=== PATIENT | female | born 1960 | race Caucasian/White ===

== ENCOUNTER → 2016-09-08 | Outpatient (CLI) | payer BC ==
[2016-09-08 09:45] LABS: Blood Urea Nitrogen 19 mg/dL (7-17); Non-African American GFR(MDRD) >60 (>60 ml/min/1.73 sqM)
--- NOTE | 2016-09-08 13:43 | MR ---
EXAMINATION TYPE: MR brain wo/w con DATE OF EXAM: 09/08/2016 10:49 AM COMPARISON: MRI Brain dated September 23, 2014. HISTORY: MS, headaches and white matter changes. TECHNIQUE: Multiplanar, multisequence images of the brain and brainstem is performed without and with IV contras t, utilizing 12 mL intravenous MultiHance gadolinium contrast is administered intravenously. Demyeli nating disease protocol with additional Sagittal Flair sequence performed. FINDINGS: T2 Lesions Present : Yes Approximate Number of Lesions: Appx. 5-7 scattered lesions. Locations Identified : Scattered deep lesions. Size of Reference Lesion(s): 1. 0.4 cm x 0.2 cm x 0.3 cm on axial image 19 and sagittal image 28 right frontal white matter stabl e. One of the larger lesions. Change from Prior: Stable Enhancing Lesions Identified: None Diffusion weighted images demonstrate no evidence of a recent infarct or other diffusion abnormality. There is no worrisome extra-axial fluid collection. The ventricular system and cisternal spaces ar e normal in size and appearance. The brain volume is age appropriate. Midline structures demonstrate normal morphology. The craniocervical junction appears within normal limits. Post contrast images demonstrate no abnormal enhancement. The dural venous sinuses appear pa tent. Mild mucosal thickening in bilateral ethmoid sinuses is present. Remainder of the paranasal sin uses are clear. The globes are intact bilaterally. Lenses are somewhat thinned similar to prior. IMPRESSION: Mild to minimal nonspecific white matter changes nonspecific finding would favor product of chronic small vessel ischemic change in patient of this age. No new or enhancing lesions are evide nt.
== END | disposition home or self-care (01) ==
LOC: RADMRIMAIN 09:10
PROVIDERS: ATTEND Psychiatry & Neurology Neurology
DX: R90.82 White matter disease, unspecified (principal)
CPT/HCPCS: 82565; 84520; 70553; A9577

== ENCOUNTER → 2017-02-24 | Outpatient (CLI) | payer BC ==
--- NOTE | 2017-02-25 07:55 | CONS ---
Reason for the consultation is sleep apnea. A 56-year-old female patient who suffers from chronic insomnia. The patient has had insomnia for many years and this has been attributed to be a comorbid insomnia related to anxiety and depression. She has been maintained on a combination of chlordiazepoxide, trazodone and Seroquel in regards to her chronic insomnia. She is also known to have chronic degenerative disc disease of the cervical spine for which she has undergone surgical discectomy and fusion and this was further complicated by a right-sided vocal cord paralysis. INTERVAL SLEEP CHARACTERISTICS: The patient claims that she averages between 4 to 6 hours of sleep per night. She has been able to initiate sleep; however, after going to sleep she would wake up frequently. She has been noted to stop breathing and snores loud. In addition, she has been having excessed tiredness and sleepiness. All these symptoms also raise suspicion for obstructive sleep apnea. The home sleep study was done and based on the home sleep study, the patient was found to have a mild obstructive sleep apnea with an AHI of 6.5; however, there was significant nocturnal oxygen desaturation which is out of proportion to the severity of obstructive sleep apnea. This patient has spent approximately 153 minutes of the sleep the pulse ox of 88% and below. She is nonobese, yet as mentioned she has right vocal cord paralysis. No history of any chronic lung disease. She ( ) and pulse ox while awake is around 96%. She has interest in further investigation and treatment of obstructive sleep apnea if needed. As mentioned, HUMERA severity was mild based on this current home sleep study. No sleep paralysis, no ( ) or cataplexy. Her weight is up by 5 pounds over the past one year. She wakes up at least 3 to 5 times in the middle of the night and occasionally she has been reported to sleep talk. PAST MEDICAL HISTORY: 1. Chronic insomnia. 2. Anxiety/depression. 3. 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 4. Fibromyalgia. 5. Hyperlipidemia. 6. Degenerative cervical disc disease, status post discectomy and fusion. Allergies are to CODEINE, AZITHROMYCIN, CLINDAMYCIN. SOCIAL HISTORY: The patient is a nonsmoker, no evidence of alcohol use and no use of IV drugs. Surgical history includes cervical fusion in 2004, hysterectomy, cataract surgery. OUTPATIENT MEDICATION LIST: The patient has been on Estradiol 1 mg p.o. q.day, verapamil 240 mg p.o. q.day, trazodone 100 mg p.o. q.day, Zocor 10 mg p.o. q.day , Seroquel 100 mg p.o. q.day, loperamide on a p.r.n. basis, dicyclomine 10 mg p.o. q.day, chlordiazepoxide 25 mg p.o. q.day, omeprazole 4 mg p.o. q.day, hydrocortisone 10 mg p.o. q.day and 5 mg p.o. q.day. REVIEW OF SYSTEMS: A 12-point review of system was done, positive for what is mentioned above in the history of present illness. BP is 156/87, pulse 76, respirations 16, temperature 97.2 and saturation 96% on room air. Weight is 148, height is 5,2, neck size is 14-1/4 inch, BMI is 27. GENERAL APPEARANCE: Calm, comfortable. HEENT: Negative for stridor, no goiter, neck masses, Mallampati class 4. LUNGS: Clear to auscultation. Heart sounds regular rate and rhythm, normal S2, S2. No S3, no S4, no murmurs. ABDOMEN: Soft, nontender, no organomegaly. EXTREMITIES: No edema, no cyanosis or clubbing. IMPRESSION: 1. Chronic insomnia maintained on a combination of trazodone and Seroquel. 2. Mild obstructive sleep apnea based on the results of a home sleep study with an apnea-hypopnea of 6.5. 3. Severe nocturnal oxygen desaturation as the patient spent approximately 2 hours of sleep time with a pulse ox of 88% and below. This is considered to be out of proportion to the severity of the sleep apnea. 4. Degenerative disc disease of the cervical spine with previous discectomy and fusion. 5. Right vocal cord paralysis. 6. Fibromyalgia. 7. Hyperlipidemia. 8. Adrenal insufficiency of a secondary type related to pituitary insufficiency of ACTH. PLAN: I would like to obtain a full polysomnogram on this patient. Note that she has history of chronic insomnia. In addition, her home sleep study is showing contradictory results of mild HUMERA and severe nocturnal oxygen desaturation. This raises suspicion for any nocturnal alveolar hypoventilation which is causing the saturation in the event of a sleep apnea. I will try to authorize this home sleep study for this patient for better information and understanding of her pathology. Continue the same medications. Will see me back after the PSG for further advice. No need for CPAP therapy at this point. WILVER
== END ==
LOC: SLEEP 14:16
PROVIDERS: ATTEND Internal Medicine Critical Care Medicine
DX: F51.04 Psychophysiologic insomnia (principal); F41.9 Anxiety disorder, unspecified; F32.9 Major depressive disorder, single episode, unspecified; M79.1 Myalgia; E78.5 Hyperlipidemia, unspecified; M50.30 Other cervical disc degeneration, unspecified cervical region; Z88.5 Allergy status to narcotic agent; Z88.1 Allergy status to other antibiotic agents
CPT/HCPCS: 99211

== ENCOUNTER → 2017-12-24 | Outpatient (CLI) | payer BC ==
[2017-12-24 13:18] LABS: Blood Urea Nitrogen 27 mg/dL (7-17)
== END | disposition home or self-care (01) ==
LOC: LABT 12:22
PROVIDERS: ATTEND Nurse Practitioner Acute Care
DX: Z01.812 Encounter for preprocedural laboratory examination (principal); R51 Headache; M54.2 Cervicalgia; M54.5 Low back pain
CPT/HCPCS: 36415; 82565; 84520

== ENCOUNTER → 2018-01-14 | Outpatient (CLI) | payer BC ==
--- NOTE | 2018-01-14 10:13 | MR ---
EXAMINATION TYPE: MR lumbar spine wo con DATE OF EXAM: 01/14/2018 COMPARISON: MRI lumbar spine August 19, 2013 HISTORY: low back pain per order. Back pain into right lower extremity for over 5 years per patient. TECHNIQUE: Multiplanar, multisequence imaging of the lumbar spine is performed without IV contrast. FINDINGS: Sagittal images of the lumbar spine show vertebral body heights and alignment to appear sta ble and satisfactory. The intervertebral discs demonstrate increased multilevel disc desiccation with disc space heights fairly well-maintained. There are new or more prominent posterior multilevel disc herniations on sagittal images effacing anterior thecal sac. The conus medullaris remains normal in position and signal ending mid L1 level. The bone marrow signal intensity is within normal limits. M ild multilevel anterior spurring is seen. Axial images show the T12-L1 and L1-L2 levels to appear within normal limits. Axial images at L2-L3 level show more prominent mild to moderate broad disc bulge mildly effacing ant erior thecal sac and axial image 18. There is mild to minimal right greater than left bilateral anter ior inferior neural foraminal narrowing. Findings are new from prior. Axial images at L3-L4 level show mild to moderate broad disc bulge effacing anterior thecal sac and a xial image 12 and causing mild bilateral anterior inferior neural foraminal narrowing. Mild bilateral facet arthropathy is present. Finding slightly more prominent versus prior. Axial images at L4-L5 level show broad-based posterior disc protrusion effacing anterior thecal sac a long with mild to moderate facet degenerative changes bilaterally. There is mild to moderate bilatera l anterior inferior neural foraminal narrowing. Axial images at L5-S1 level show mild facet arthropathy bilaterally. There is broad disc bulge seen b ut spinal canal is preserved. There is mild to moderate right-sided anterior inferior neural foramina l narrowing. Left-sided neural foramen is patent. No suspicious retroperitoneal findings are identified. There is visualization of pancreatic duct with out suspicious dilatation noted. IMPRESSION: Multilevel degenerative changes in lumbar spine with some progression from 2014 MRI. No s ignificant new finding is seen to account for patient's right-sided radiculopathy type symptoms [facility] er.
--- NOTE | 2018-01-14 11:12 | MR ---
EXAMINATION TYPE: MR brain/cspine wo/w DATE OF EXAM: 01/14/2018 COMPARISON: MR Brain dated 09/08/2016. MRI cervical spine 12/19/2014. HISTORY: Headache, Cervicalgia per order. Migraine headaches with nervous breakdown per patient. Litzy re neck pain with burning and numbness for 20 years causing pain or weakness into both arms and finge rs per patient with history of prior neck surgery. TECHNIQUE: Multiplanar, multisequence images of the cervical spine, brain, and brainstem are all performed witho ut and with IV contrast, utilizing 6.5 mL intravenous Gadavist gadolinium contrast is administered in travenously. Demyelinating disease protocol with additional Sagittal Flair sequence performed the br ain and brainstem and PD sagittal sequence of cervical spine acquired. FINDINGS: BRAIN: T2 Lesions Present : Yes Approximate Number of Lesions: Less than 5 Locations Identified : Scattered small lesions redemonstrated Size of Reference Lesion(s): Largest measurable lesion is 4 x 2 x 3 mm axial image 18 and sagittal image 27 stable right frontal d eep white matter. Enhancing Lesion(s) Present: No Change from Prior: Accounting for technical differences presumed stable Diffusion weighted images demonstrate no evidence of a recent infarct or other diffusion abnormality. There is no worrisome extra-axial fluid collection. The ventricular system and cisternal spaces ar e normal in size and appearance. The brain volume is age appropriate. Midline structures demonstrate normal morphology. The craniocervical junction appears within normal limits. Post contrast images demonstrate no abnormal enhancement. The dural venous sinuses appear pa tent. The visualized sinuses are clear and the globes are intact. IMPRESSION: Stable minimal nonspecific white matter changes. No new or enhancing lesions are seen. No significant change from prior. C-SPINE: FINDINGS: Sagittal images of the cervical spine show the craniocervical junction to remain within nor mal limits. The cervical and upper thoracic spinal cord is normal in course, caliber, and signal. V ertebral alignment is stable and anatomic. There is redemonstration of extensive surgical change begi nning superior C5 level through inferior C7 vertebral body level with anterior fusion plate, artifact from disc, and ossific fusion present. Vertebral body heights and disc space heights appear maintain ed above and below these levels. Small posterior disc herniations is redemonstrated C3-C4 and to a sl ightly greater degree C4-C5 level on sagittal images on today's study. The bone marrow signal intens ity is within normal limits. No suspicious enhancement is seen. Mild anterior spurring C4 level is re demonstrated. Axial images show the C2-C3 level to appear within normal limits currently. Axial images at C3-C4 level shows central disc protrusion effacing anterior thecal sac, this is less prominent versus prior study, there is new mild right-sided neural foraminal narrowing due to foramin al disc protrusion component axial image 43. Left-sided neural foramen is patent. Axial images at C4-C5 level show posterior broad-based disc protrusion effacing anterior thecal sac w ith flattening of the ventral surface of spinal cord, bilateral neural foramina are patent. Finding i s new from prior study. Axial images at C5-C6 level show artifact from disc material extends image 24, bilateral neural yola maurilio are patent. There is posterior spur effacing anterolateral thecal sac and axial image 27 redemons trated. Axial images at C6-C7 level redemonstrate artifact from surgical change, bilateral neural foramina ar e patent. Spinal canal is preserved on axial image 23. Axial images at C7-T1 level show extensive artifact anteriorly, cannot exclude mild left-sided neural foraminal narrowing. Right-sided neural foramen is patent on axial image 16. IMPRESSION: No evidence of demyelinating disease involvement in the cervical spinal cord. Postsurgica l change C5-C7 level with stable and satisfactory alignment. Disc herniation C3-C4 levels improved fr om prior. New disc herniation C4-C5 level however is noted.
== END | disposition home or self-care (01) ==
LOC: RADMRIMAIN 08:47
PROVIDERS: ATTEND Psychiatry & Neurology Neurology
DX: M50.221 Other cervical disc displacement at C4-C5 level (principal); M47.816 Spondylosis without myelopathy or radiculopathy, lumbar region; R51 Headache; Z98.890 Other specified postprocedural states; Z88.5 Allergy status to narcotic agent; Z88.8 Allergy status to other drugs, medicaments and biological substances; Z88.1 Allergy status to other antibiotic agents
CPT/HCPCS: 70553; 72148; 72156; A9581

== ENCOUNTER 2018-07-08 14:29 | Emergency (ER) | payer BC ==
[2018-07-08 14:52] VITALS: RESP 18; TEMP 97.9
--- NOTE | 2018-07-08 15:19 | ED ---
General Adult HPI - General Chief complaint: Upper Respiratory Infection Stated complaint: Cough Time Seen by Provider: 07/08/18 14:54 Source: patient Mode of arrival: ambulatory Limitations: physical limitation - History of Present Illness Initial comments: 58-year-old female patient presents to the emergency department today for evaluation of productive cough 3 weeks. Patient states with initial onset of symptoms she had nasal congestion, sore throat, and cough. Patient states that the nasal congestion and cough has persisted. She states that occasionally she become short of breath and she does a lot of physical activity or talks for a prolonged period of time. States that she has been having some mild wheezing. Denies any fevers or chills. States that she does have a history of adrenal insufficiency and does take hydrocortisone daily. States when she has an illness she does increase the dose, she has been taking total of 30 mg per day. She is also reporting migraine headache. States the is in the back of her head. States that she does have history of migraine headaches and states her pain is consistent with her usual migraine pattern. She denies any blurred or double vision. Denies nausea, vomiting, numbness, or tingling. Patient denies any recent rash, chest pain, abdominal pain, nausea, vomiting, diarrhea, constipation, back pain, hematuria, dysuria, urinary urgency, urinary frequency , visual changes, or any other complaints. - Related Data Home Medications Medication Instructions Recorded Confirmed Amoxicillin 250 mg PO MOWEFR 02/08/16 02/08/16 Butalb/APAP/Caff 50-325-40Mg 1 tab PO TID PRN 02/08/16 02/08/16 [Fioricet 50-325-40] Dicyclomine [Bentyl] 10 mg PO TID 02/08/16 02/08/16 Ergocalciferol [Vitamin D2] 50,000 unit PO SA 02/08/16 02/08/16 Essential Cultures 1 cap PO QAM 02/08/16 02/08/16 Estradiol [Estrace] 1 mg PO DAILY 02/08/16 02/08/16 Hydrocortisone [Cortef] 2.5 mg PO QAM 02/08/16 02/08/16 Hydrocortisone [Cortef] 10 mg PO QAM 02/08/16 02/08/16 Loperamide [Imodium] 4 mg PO QID 02/08/16 02/08/16 Omeprazole [PriLOSEC] 40 mg PO BID 02/08/16 02/08/16 QUEtiapine [SEROquel] 200 mg PO HS 02/08/16 02/08/16 Ranitidine HCl [Zantac] 150 mg PO QAM 02/08/16 02/08/16 Rizatriptan Benzoate [Maxalt] 10 mg PO QID PRN 02/08/16 02/08/16 Simvastatin [Zocor] 10 mg PO HS 02/08/16 02/08/16 Verapamil HCl [Verapamil ER] 240 mg PO DAILY 02/08/16 02/08/16 Vitamin E 200 unit PO DAILY 02/08/16 02/08/16 chlordiazePOXIDE HCL 25 mg PO BID PRN 02/08/16 02/08/16 traZODone HCL [Desyrel] 200 mg PO HS 02/08/16 02/08/16 Previous Rx's Medication Instructions Recorded Metoclopramide HCl [Reglan] 10 mg PO TID PRN #15 tablet 02/08/16 Nystatin 100,000 Unit/ml Susp 4 ml PO QID #150 ml 02/08/16 [Mycostatin Oral Susp] Amoxic-Pot Clav 875-125Mg 1 tab PO Q12HR #20 tablet 07/08/18 [Augmentin 875-125] Benzonatate [Tessalon Perles] 100 mg PO TID #15 cap 07/08/18 Promethazine 6.25MG/5Ml [Phenergan 6.25 mg PO Q6H #100 ml 07/08/18 Syrup] Allergies Allergy/AdvReac Type Severity Reaction Status Date / Time azithromycin [From Zithromax] Allergy Unknown Verified 07/08/18 14:52 clindamycin Allergy Unknown Verified 07/08/18 14:52 codeine Allergy Rash/Hives Verified 07/08/18 14:52 zonisamide [From Zonegran] Allergy Rash/Hives Verified 07/08/18 14:52 Review of Systems ROS Statement: Those systems with pertinent positive or pertinent negative responses have been documented in the HPI. ROS Other: All systems not noted in ROS Statement are negative. Past Medical History Past Medical History: Hyperlipidemia, Hypertension Additional Past Medical History / Comment(s): adrenal deficiency History of Any Multi-Drug Resistant Organisms: None Reported Past Surgical History: Hysterectomy Additional Past Surgical History / Comment(s): ulner nerve disposition, cervical fusion, neck -cervical ablation, bulding discs Past Psychological History: No Psychological Hx Reported, Anxiety, Depression Smoking Status: Former smoker Past Alcohol Use History: Occasional Past Drug Use History: None Reported, Marijuana General Exam Limitations: physical limitation General appearance: alert, in no apparent distress Eye exam: Present: normal appearance, PERRL, EOMI. Absent: scleral icterus, conjunctival injection, periorbital swelling ENT exam: Present: normal exam, normal oropharynx, mucous membranes moist Respiratory exam: Present: wheezes (Scattered mild expiratory wheezes). Absent : normal lung sounds bilaterally, respiratory distress, rales, rhonchi, stridor Cardiovascular Exam: Present: regular rate, normal rhythm, normal heart sounds. Absent: systolic murmur, diastolic murmur, rubs, gallop, clicks GI/Abdominal exam: Present: soft, normal bowel sounds. Absent: distended, tenderness, guarding, rebound, rigid Neurological exam: Present: alert, oriented X3, CN II-XII intact, other ( Strength in all 4 extremities is 5/5.) Psychiatric exam: Present: normal affect, normal mood Skin exam: Present: warm, dry, intact, normal color. Absent: rash Course Vital Signs 07/08/18 07/08/18 14:48 17:01 Temperature 97.9 F 97.9 F Pulse Rate 83 78 Respiratory 18 18 Rate Blood Pressure 144/77 148/71 O2 Sat by Pulse 96 97 Oximetry Medical Decision Making - Medical Decision Making 58-year-old female patient presents to the emergency department today for evaluation of cough 3 weeks. Patient reported shortness of breath only with vigorous physical activity or prolonged speaking. Lungs are clear to auscultation with good air movement. Chest x-ray showed no acute cardiopulmonary process. Given patient's history of adrenal insufficiency we did perform labs which were negative for any acute findings. Patient be discharged home with a prescription for Augmentin to treat for both sinusitis and acute bronchitis. She declined albuterol inhaler. She does take steroids for adrenal insufficiency so we'll continue those. We did give 1 dose of Decadron here in the department. Return parameters were discussed in detail. She is instructed to follow-up with her primary care physician for recheck as soon as possible. She verbalizes understanding and agrees with this plan. - Lab Data Result diagrams: 07/08/18 15:50 07/08/18 15:50 Lab Results 07/08/18 07/08/18 Range/Units 15:50 15:50 WBC 5.2 (3.8-10.6) k/uL RBC 4.19 (3.80-5.40) m/uL Hgb 12.8 (11.4-16.0) gm/dL Hct 39.9 (34.0-46.0) % MCV 95.1 (80.0-100.0) fL MCH 30.5 (25.0-35.0) pg MCHC 32.1 (31.0-37.0) g/dL RDW 13.7 (11.5-15.5) % Plt Count 373 (150-450) k/uL Neutrophils % 72 % Lymphocytes % 21 % Monocytes % 4 % Eosinophils % 1 % Basophils % 1 % Neutrophils # 3.8 (1.3-7.7) k/uL Lymphocytes # 1.1 (1.0-4.8) k/uL Monocytes # 0.2 (0-1.0) k/uL Eosinophils # 0.1 (0-0.7) k/uL Basophils # 0.0 (0-0.2) k/uL Sodium 140 (137-145) mmol/L Potassium 4.2 (3.5-5.1) mmol/L Chloride 101 (98-107) mmol/L Carbon Dioxide 29 (22-30) mmol/L Anion Gap 10 mmol/L BUN 11 (7-17) mg/dL Creatinine 0.73 (0.52-1.04) mg/dL Est GFR (CKD-EPI)AfAm >90 (>60 ml/min/1.73 sqM) Est GFR (CKD-EPI)NonAf >90 (>60 ml/min/1.73 sqM) Glucose 112 H (74-99) mg/dL Calcium 9.8 (8.4-10.2) mg/dL Total Bilirubin 0.3 (0.2-1.3) mg/dL AST 22 (14-36) U/L ALT 20 (9-52) U/L Alkaline Phosphatase 47 (38-126) U/L Total Protein 7.6 (6.3-8.2) g/dL Albumin 4.5 (3.5-5.0) g/dL - Radiology Data Radiology results: report reviewed, image reviewed Two-view x-ray of the chest is obtained. Report is reviewed in its entirety. Impression by Dr. Venegas shows no suspicious acute infiltrate. Disposition Clinical Impression: Acute bronchitis, Sinusitis Disposition: HOME SELF-CARE Condition: Good Instructions: Sinusitis (ED), Acute Bronchitis (ED) Additional Instructions: Take [id number] nasal decongestants. Complete antibiotic prescription in full. Follow-up with your primary care physician for recheck as soon as possible. Return immediately for any new, worsening, or concerning symptoms. Prescriptions: Amoxic-Pot Clav 875-125Mg [Augmentin 875-125] 1 tab PO Q12HR #20 tablet Benzonatate [Tessalon Perles] 100 mg PO TID #15 cap Promethazine 6.25MG/5Ml [Phenergan Syrup] 6.25 mg PO Q6H #100 ml Is patient prescribed a controlled substance at d/c from ED?: No Referrals: Leida Braswell MD [Primary Care Provider] - 1-2 days Time of Disposition: 16:41
--- NOTE | 2018-07-08 15:30 | XR ---
EXAMINATION TYPE: XR chest 2V DATE OF EXAM: 07/08/2018 COMPARISON: Chest x-ray August 12, 2013. HISTORY: Cough per patient. Chest pain per order. TECHNIQUE: Frontal and lateral views of the chest are obtained. FINDINGS: There is no focal air space opacity, pleural effusion, or pneumothorax seen. The cardiac silhouette size is within normal limits. Anterior fusion plate cervical spine is redemonstrated with adjacent right-sided surgical clips. Right breast shadow asymmetrically slightly smaller versus left breast. Atherosclerotic change of aorta is noted. IMPRESSION: No suspicious acute infiltrate.
[2018-07-08] MEDS ORDERED: diphenhydrAMINE 50 MG/ML 1 ML VIAL IVP STA (15:41)
[2018-07-08] MEDS ORDERED: METOCLOPRAMIDE 5 MG/ML 2 ML VIAL IVP STA (15:41)
[2018-07-08] MEDS ORDERED: KETOROLAC 30 MG/ML 1 ML VIAL IVP STA (15:41)
[2018-07-08] MEDS ORDERED: DEXAMETHASONE SOD PHOSPHATE 10 MG/ML 1 ML VIAL IV STA (15:41)
[2018-07-08 16:24] LABS: Basophils % (A) 1 %; Eosinophils # (A) 0.1 k/uL (0-0.7); Eosinophils % (A) 1 %; HCT 39.9 % (34.0-46.0); HGB 12.8 gm/dL (11.4-16.0); Lymphocytes # (A) 1.1 k/uL (1.0-4.8); Lymphocytes % (A) 21 %; MCH 30.5 pg (25.0-35.0); MCHC 32.1 g/dL (31.0-37.0); MCV 95.1 fL (80.0-100.0); Mean Platelet Volume 6.2; Monocytes # (A) 0.2 k/uL (0-1.0); Monocytes % (A) 4 %; Neutrophils # (A) 3.8 k/uL (1.3-7.7); Neutrophils % (A) 72 %; Platelet Count 373 k/uL (150-450); RBC 4.19 m/uL (3.80-5.40); RDW 13.7 % (11.5-15.5); WBC 5.2 k/uL (3.8-10.6)
[2018-07-08 16:27] LABS: ALT 20 U/L (9-52); AST 22 U/L (14-36); Albumin 4.5 g/dL (3.5-5.0); Alkaline Phosphatase 47 U/L (38-126); Anion Gap 10 mmol/L; Blood Urea Nitrogen 11 mg/dL (7-17); Calcium 9.8 mg/dL (8.4-10.2); Carbon Dioxide 29 mmol/L (22-30); Chloride 101 mmol/L (98-107); Glucose 112 mg/dL (74-99); Potassium 4.2 mmol/L (3.5-5.1); Sodium 140 mmol/L (137-145); Total Bilirubin 0.3 mg/dL (0.2-1.3); Total Protein 7.6 g/dL (6.3-8.2)
[2018-07-08 17:03] VITALS: BP 148/71; PULSE 78
== END 2018-07-08 17:02 | disposition home or self-care (01) ==
LOC: EC 14:29
DX: J20.9 Acute bronchitis, unspecified (principal); J32.9 Chronic sinusitis, unspecified; E27.40 Unspecified adrenocortical insufficiency; E78.5 Hyperlipidemia, unspecified; I10 Essential (primary) hypertension; F32.9 Major depressive disorder, single episode, unspecified; F41.9 Anxiety disorder, unspecified; Z87.891 Personal history of nicotine dependence; Z88.1 Allergy status to other antibiotic agents; Z88.2 Allergy status to sulfonamides; Z88.5 Allergy status to narcotic agent; Z79.52 Long term (current) use of systemic steroids; Z79.899 Other long term (current) drug therapy; Z98.1 Arthrodesis status
CPT/HCPCS: 36415; 80053; 85025; 71046; 99285; 96374; 96375 ×3; J1200; J1100; J2765; J1885

== ENCOUNTER → 2018-07-08 | Outpatient (CLI) | payer BC ==
[2018-07-09 03:59] LABS: Rheumatoid Factor 7 IU/mL (0-15)
[2018-07-09 04:30] LABS: Cyclic Citrullinated Pep IgG NEGATIVE (NEGATIVE)
== END | disposition home or self-care (01) ==
LOC: LABWHC1 14:05
PROVIDERS: ATTEND Physician Assistant Medical
DX: M79.641 Pain in right hand (principal)
CPT/HCPCS: 36415; 86200; 86431

== ENCOUNTER → 2018-07-29 | Outpatient (CLI) | payer BC ==
--- NOTE | 2018-07-29 15:51 | BD ---
EXAMINATION TYPE: Axial Bone Density DATE OF EXAM: 07/29/2018 COMPARISON: NONE CLINICAL HISTORY: 58 YR OLD FEMALE....ICD-10 CODE: N95.1 MENOPAUSAL AND FCS Height: 61 Weight: 114 FRAX RISK QUESTIONS: Secondary Osteoporosis: YES 3. Menopause before 45: YES AT AGE 38 Current Tobacco Use: YES RISK FACTORS HISTORY OF: Surgery to Spine TO NECK ONLY, FUSION, AND NERVE ABLATION TO VARIOUS PLACES Active: YES Diet low in dairy products/other sources of calcium: YES, LOW Postmenopausal woman: HYST AT AGE 38 YRS OLD, TOTAL Take estrogen and/or progesterone medications: YES HRT, FOR ABOUT 2 YRS NOW Adrenal Insufficiency: YES MEDICATIONS: Additional Medications: BP MEDS, SEROQUIL, LIBRIUM, VIT D, REFLUX MEDS, STATIN FOR CHOLESTEROL, TENS UNIT, MARIJUANA, Additional History: OSTEOARTHRITIS, IBS, EXAM MEASUREMENTS: Bone mineral densitometry was performed using the [employer] System. Bone mineral density as measured about the Lumbar spine is: ----- L1-L4(G/cm2): 1.288 T Score Values are as follows: ----- L1: 0.2 ----- L2: -0.4 ----- L3: 1.6 ----- L4: 1.9 ----- L1-L4: Bone mineral density FIRST BONE DENSITY AT [facility] Bone mineral density about the R hip (g/cm2): 1.035 Bone mineral density about the L hip (g/cm2): 0.970 T Score values are as follows: -----R Neck: -0.9 -----L Neck: -1.2 -----R Total: 0.2 -----L Total: -0.3 Bone mineral density FIRST BONE DENSITY AT [facility] FRAX%s: THERE IS A 5.8% CHANCE FOR A MAJOR OSTEOPOROTIC FX AND A 0.6% FOR HIP.....PROBABILITY OF F X IN 10 YRS TIME IMPRESSION: Osteopenia (T Score between -2.5 and -1) femoral neck level left hip.. There is slightly increased risk of fracture and the patient may be considered for treatment. Re-Screen 2-5 years. NOTE: T-SCORE=SD OF THE YOUNG ADULT MEAN.
== END ==
LOC: RADBDWWP 14:14
PROVIDERS: ATTEND Internal Medicine Endocrinology, Diabetes & Metabolism
DX: M85.852 Other specified disorders of bone density and structure, left thigh (principal); N95.1 Menopausal and female climacteric states
CPT/HCPCS: 77080

== ENCOUNTER → 2019-02-07 | Outpatient (CLI) | payer BC | END | disposition home or self-care (01) | LOC: LABWHC1 10:37 | PROVIDERS: ATTEND Internal Medicine Cardiovascular Disease | DX: E78.2 Mixed hyperlipidemia (principal) | CPT/HCPCS: 36415; 80061; 82550; 84450; 84460 ==

== ENCOUNTER 2022-08-14 17:48 | Observation (INO) | payer BC, MEDICARE ==
[2022-08-14 19:28] LABS: ALT 142 U/L (4-34); AST 221 U/L (14-36); African American GFR (CKD) >90 (>60 ml/min/1.73 sqM); Albumin 4.8 g/dL (3.5-5.0); Alkaline Phosphatase 169 U/L (38-126); Anion Gap 11 mmol/L; Blood Urea Nitrogen 13 mg/dL (7-17); Calcium 9.3 mg/dL (8.4-10.2); Carbon Dioxide 24 mmol/L (22-30); Chloride 104 mmol/L (98-107); Glucose 89 mg/dL (74-99); Lipase 252 U/L (23-300); Magnesium 1.9 mg/dL (1.6-2.3); Non-African American GFR(CKD) >90 (>60 ml/min/1.73 sqM); Potassium 4.3 mmol/L (3.5-5.1); Sodium 139 mmol/L (137-145); Total Bilirubin 0.8 mg/dL (0.2-1.3); Total Protein 7.8 g/dL (6.3-8.2)
[2022-08-14 19:30] LABS: Anisocytosis Slight; Basophils # (A) 0.1 k/uL (0-0.2); Basophils % (A) 1 %; Eosinophils # (A) 0.1 k/uL (0-0.7); Eosinophils % (A) 1 %; HCT 41.5 % (34.0-46.0); HGB 14.1 gm/dL (11.4-16.0); Lymphocytes # (A) 2.9 k/uL (1.0-4.8); Lymphocytes % (A) 28 %; MCH 32.4 pg (25.0-35.0); MCV 95.2 fL (80.0-100.0); Mean Platelet Volume 8.3; Monocytes # (A) 0.7 k/uL (0-1.0); Monocytes % (A) 7 %; Neutrophils # (A) 6.3 k/uL (1.3-7.7); Neutrophils % (A) 61 %; Platelet Count 316 k/uL (150-450); RBC 4.36 m/uL (3.80-5.40); RDW 16.2 % (11.5-15.5); WBC 10.3 k/uL (3.8-10.6)
--- NOTE | 2022-08-14 19:30 | XR ---
EXAMINATION TYPE: XR chest 2V DATE OF EXAM: 08/14/2022 COMPARISON: Chest x-ray July 08, 2018 HISTORY: Chest pain. TECHNIQUE: Frontal and lateral views of the chest are obtained. FINDINGS: There is no focal air space opacity, pleural effusion, or pneumothorax seen. The cardiac silhouette size is within normal limits. Fusion plate in the cervical spine is redemonstrated. [place] ing EKG leads are present on current study IMPRESSION: No acute process. No significant change from prior.
[2022-08-14 19:57] LABS: INR 0.9 (<1.2); Partial Thromboplastin Time 21.5 sec (22.0-30.0); Prothrombin Time 9.8 sec (9.0-12.0)
[2022-08-14 20:20] LABS: Appearance,Urine Cloudy (Clear); Bacteria,Urine Many /hpf; Bilirubin,Urine Negative (Negative); Blood,Urine Small (Negative); Color,Urine Yellow; Glucose,Urine (UA) Negative (Negative); Ketones,Urine Negative (Negative); Leukocyte Esterase,Urine Negative (Negative); Mucus,Urine Few /hpf; Nitrite,Urine Negative (Negative); PH, Urine 6.5 (5.0-8.0); Protein,Urine 1+ (Negative); RBC,Urine 7 /hpf (0-5); Specific Gravity,Urine 1.019 (1.001-1.035); Squamous Epithelial Cell,Urine 8 /hpf (0-4); WBC,Urine 1 /hpf (0-5)
[2022-08-14] MEDS ORDERED: NITROGLYCERIN SL TABS 0.4 MG TAB SUBLINGUAL PRN (22:39)
--- NOTE | 2022-08-14 22:39 | ED ---
Chest Pain HPI - General Chief Complaint: Chest Pain Stated Complaint: Hypertension Time Seen by Provider: 08/14/22 18:33 Source: patient, family, RN notes reviewed Mode of arrival: ambulatory Limitations: no limitations - History of Present Illness Initial Comments: 62-year-old female to emergency department with complaints of elevated blood pressure and also chest pain is intermittent. Patient does states she's had a history of hypertension. She was seen at [facility] and later discharged earlier this afternoon she came here after discussing the findings with her hoop riveter in her private medical doctor. Exertional dyspnea is noted chest pain and elevated blood pressure. She also states she's had a migraine headache. He still hasn't. No fevers chills nausea vomiting sweats or other symptoms reported MD Complaint: chest pain - Related Data Home Medications Medication Instructions Recorded Confirmed Hydrocortisone [Cortef] 15 mg PO DAILY 02/08/16 08/14/22 Rizatriptan Benzoate [Maxalt] 10 mg PO BID PRN 02/08/16 08/14/22 Verapamil HCl [Verapamil ER] 240 mg PO HS 02/08/16 08/14/22 estradioL [Estrace] 1 mg PO DAILY 02/08/16 08/14/22 Hydrocortisone [Cortef] 5 mg PO DAILY@1500 08/14/22 08/14/22 LORazepam [Ativan] 0.5 mg PO DAILY PRN 08/14/22 08/14/22 Omeprazole [PriLOSEC] 40 mg PO DAILY 08/14/22 08/14/22 Ondansetron Odt [Zofran Odt] 8 mg PO Q6H PRN 08/14/22 08/14/22 Pregabalin [Lyrica] 75 mg PO TID 08/14/22 08/14/22 QUEtiapine [SEROquel] 25 mg PO HS 08/14/22 08/14/22 atenoloL [Tenormin] 100 mg PO DAILY 08/14/22 08/14/22 hydrALAZINE HCL [Apresoline] 10 mg PO TID 08/14/22 08/14/22 tiZANidine [Zanaflex] 4 mg PO Q8HR PRN 08/14/22 08/14/22 Allergies Allergy/AdvReac Type Severity Reaction Status Date / Time azithromycin [From Zithromax] Allergy Unknown Verified 08/14/22 21:37 clindamycin Allergy Unknown Verified 08/14/22 21:37 codeine Allergy Rash/Hives Verified 08/14/22 21:37 zonisamide [From Zonegran] Allergy Rash/Hives Verified 08/14/22 21:37 Review of Systems ROS Statement: Those systems with pertinent positive or pertinent negative responses have been documented in the HPI. ROS Other: All systems not noted in ROS Statement are negative. EKG Findings - EKG Results: EKG: interpreted by ERMD (EKG interpreted by me shows a sinus rhythm of 82 AK interval 157 QRS tenriism 81 QT since QTC 357/396 normal-appearing EKG) Past Medical History Past Medical History: Hyperlipidemia, Hypertension Additional Past Medical History / Comment(s): adrenal deficiency History of Any Multi-Drug Resistant Organisms: None Reported Past Surgical History: Heart Catheterization, Hysterectomy Additional Past Surgical History / Comment(s): ulner nerve disposition, cervical fusion, neck -cervical ablation, bulding discs Past Psychological History: No Psychological Hx Reported, Anxiety, Depression Smoking Status: Current every day smoker Past Alcohol Use History: Occasional Past Drug Use History: None Reported, Marijuana General Exam - General Exam Comments Initial Comments: This is a well-developed well-nourished awake alert oriented 4 female Limitations: no limitations General appearance: alert, anxious Head exam: Present: atraumatic, normocephalic, normal inspection Eye exam: Present: normal appearance, PERRL, EOMI. Absent: scleral icterus, conjunctival injection, periorbital swelling ENT exam: Present: normal exam, mucous membranes moist Neck exam: Present: normal inspection, full ROM, other (No stridor JVD or bruits). Absent: tenderness, meningismus, lymphadenopathy Respiratory exam: Present: normal lung sounds bilaterally. Absent: respiratory distress, wheezes, rales, rhonchi, stridor, chest wall tenderness Cardiovascular Exam: Present: regular rate, normal rhythm, normal heart sounds. Absent: systolic murmur, diastolic murmur, rubs, gallop, clicks GI/Abdominal exam: Present: soft, normal bowel sounds. Absent: distended, tenderness, guarding, rebound, rigid Extremities exam: Present: normal inspection, full ROM, normal capillary refill. Absent: tenderness, pedal edema, joint swelling, calf tenderness Back exam: Present: normal inspection Neurological exam: Present: alert, oriented X3, CN II-XII intact Psychiatric exam: Present: normal affect, normal mood Skin exam: Present: warm, dry, intact, normal color. Absent: rash Course Vital Signs 08/14/22 08/14/22 08/14/22 18:10 19:15 19:38 Temperature 98 F Pulse Rate 84 84 81 Respiratory 16 16 16 Rate Blood Pressure 204/101 198/104 181/100 O2 Sat by Pulse 96 94 L 96 Oximetry Chest Pain MDM - MDM I did evaluate the imaging no acute process. The patient's case was discussed with her and her . Patient still has a headache the chest pain and blood pressure intermittently present. I did discuss case with Dr. Alonzo patient be admitted with cardiology consultation by Dr. Soria pt. sent in by a medical professional or institution (, PA, GEOLOGIST, urgent care, hospital, or shelter...) When possible be specific @ -[No] Did you speak to anyone other than the patient for history (EMS, parent, family, police, friend...)? What history was obtained from this source @ -[No] Did you review nursing and triage notes (agree or disagree)? Why? @ -[I reviewed and agree with nursing and triage notes] Were old charts reviewed (outside hosp., previous admission, EMS record, old EKG, old radiological studies, urgent care reports/EKG's, shelter records)? Report findings @ -[No old charts were reviewed] Differential Diagnosis (chest pain, altered mental status, abdominal pain women, abdominal pain men, vaginal bleeding, weakness, fever, dyspnea, syncope, headache, dizziness, GI bleed, back pain, seizure, CVA, palpatations, mental health)? @ -[Chest pain, migraine headache, hypertension] EKG interpreted by me (3pts min.). @ -[As above] X-rays interpreted by me (1pt min.). @ -[As above] CT interpreted by me (1pt min.). @ -[None done] U/S interpreted by me (1pt. min.). @ -[None done] What testing was considered but not performed or refused? (CT, X-rays, U/S, labs)? Why? @ -[None] What meds were considered but not given or refused? Why? @ -[None] Did you discuss the management of the patient with other professionals (professionals i.e. , PA, GEOLOGIST, lab, RT, psych nurse, social security assessor, integrity engineer, teacher, bank secrecy act officer, caser up)? Give summary @ -[With Dr. Alonzo] Was smoking cessation discussed for >3mins.? @ -[No] Was critical care preformed (if so, how long)? @ -[No] Were there social determinants of health that impacted care today? How? (Homelessness, low income, unemployed, alcoholism, drug addiction, transportation, low edu. Level, literacy, decrease access to med. care, longterm, rehab)? @ -[No] Was there de-escalation of care discussed even if they declined (Discuss DNR or withdrawal of care, Hospice)? DNR status @ -[No] What co-morbidities impacted this encounter? (DM, HTN, Smoking, COPD, CAD, Canc er, CVA, ARF, Chemo, Hep., AIDS, mental health diagnosis, sleep apnea, morbid obesity)? @ -[Hypertension] Was patient admitted / discharged? Hospital course, mention meds given and route, prescriptions, significant lab abnormalities, going to OR and other pertinent info. @ -[hospital course] admitted Undiagnosed new problem with uncertain prognosis? @ -[No] Drug Therapy requiring intensive monitoring for toxicity (Heparin, Nitro, Insulin, Cardizem)? @ -[No] Were any procedures done? @ -[No] Diagnosis/symptom? @ -[default] Acute, or Chronic, or Acute on Chronic? @ -[Acute] Uncomplicated (without systemic symptoms) or Complicated (systemic symptoms)? @ -[default] Side effects of treatment? @ -[No] Exacerbation, Progression, or Severe Exacerbation? @ -[No] Poses a threat to life or bodily function? How? (Chest pain, [place], [place], pneumonia, PE, COPD, DKA, ARF, appy, cholecystitis, CVA, Diverticulitis, Homicidal, Suicidal, threat to staff... and all critical care pts) @ -[Potentially] Disposition Clinical Impression: Chest pain, Hypertension, Migraine headache Disposition: ADMITTED IP TO THIS [facility] Condition: Stable Referrals: Leida Braswell MD [Primary Care Provider] - 1-2 days Decision Date: 08/14/22 Decision Time: 22:38
[2022-08-14] MEDS ORDERED: ONDANSETRON ODT 4 MG TAB PO PRN (22:41)
[2022-08-14] MEDS ORDERED: tiZANidine 4 MG TAB PO PRN (22:41)
[2022-08-14] MEDS ORDERED: SUMAtriptan succinate 50 MG TAB PO PRN (22:41)
[2022-08-14] MEDS ORDERED: LORazepam 0.5 MG TAB PO PRN (22:41)
[2022-08-14] MEDS ORDERED: diphenhydrAMINE 50 MG/ML 1 ML VIAL IVP STA (22:43)
[2022-08-14] MEDS ORDERED: METOCLOPRAMIDE 5 MG/ML 2 ML VIAL IVP STA (22:43)
[2022-08-14] MEDS ORDERED: KETOROLAC 15 MG/ML 1 ML VIAL IVP STA (22:43)
[2022-08-15] MEDS: hydrALAZINE HCL 20 MG/ML 1 ML VIAL IVP STA ×2 (00:44→00:54)
[2022-08-15] MEDS ORDERED: QUEtiapine 25 MG TAB PO SCH (02:00)
[2022-08-15] MEDS ORDERED: VERAPAMIL SR 240 MG TABLET.ER PO SCH (02:00)
[2022-08-15] MEDS ORDERED: PANTOPRAZOLE 40 MG TABLET PO SCH (07:30)
[2022-08-15] MEDS ORDERED: ASPIRIN 325 MG TAB PO SCH (09:00)
[2022-08-15] MEDS ORDERED: atenoloL 50 MG TAB PO SCH (09:00)
[2022-08-15] MEDS ORDERED: HYDROCORTISONE 10 MG TAB PO SCH ×2 (09:00→15:00)
[2022-08-15] MEDS: hydrALAZINE HCL 10 MG TAB PO SCH ×2 (09:15→16:59)
[2022-08-15] MEDS: PREGABALIN 75 MG CAP PO SCH ×2 (09:16→16:57)
[2022-08-15 09:23] LABS: Chol/HDL Ratio 3.94 Ratio; LDL Cholesterol,Calculated 119.6 mg/dL (0.0-131.0)
[2022-08-15] MEDS ORDERED: KETOROLAC 15 MG/ML 1 ML VIAL IVP STA (10:20)
[2022-08-15] MEDS ORDERED: diphenhydrAMINE 50 MG/ML 1 ML VIAL IVP STA (10:20)
[2022-08-15] MEDS ORDERED: METOCLOPRAMIDE 5 MG/ML 2 ML VIAL IVP STA (10:21)
[2022-08-15] MEDS ORDERED: NICOTINE 21MG/24HR PATCH TRANSDERM SCH (10:30)
--- NOTE | 2022-08-15 14:07 | CONS ---
CONSULTATION HISTORY OF PRESENT ILLNESS: Apryl is a 62-year-old lady, well known to me from my outpatient practice with history of hypoadrenalism and hypertension who presented to hospital with a combination of problems including worsening migraine headaches, severe uncontrolled hypertension and chest discomfort. Her chest pain is sharp, mild intensity, precordial, unrelated to exertion, not worse with diaphoresis and seems atypical. She has had EKG that did not reveal any ischemic changes. Three sets of cardiac enzymes that are all within normal limits. Her lipid profile shows that the LDL cholesterol is 119, HDL is 62, and a total cholesterol is 246. The patient at the time of my evaluation, appears comfortable at rest. Her predominant symptom is headache. PAST MEDICAL HISTORY: Significant for hypertension, hypoadrenalism on steroid supplements and history of migraine. MEDICATIONS: 1. Verapamil 240 daily. 2. Maxalt. 3. Seroquel. 4. Ativan. 5. Lyrica. 6. Prilosec. 7. Cortef. 8. Apresoline. 9. Tenormin. ALLERGIES: To Zithromax, clindamycin, codeine. FAMILY HISTORY: Negative for premature coronary artery disease. SOCIAL HISTORY: Negative for current smoking, EtOH or drug abuse. REVIEW OF SYSTEMS: A review of systems has been performed, pertinence are as documented. PHYSICAL EXAMINATION: VITAL SIGNS: Afebrile, heart rate is 106 beats per minute, blood pressure is 136/81, respiratory rate is 18, and O2 saturation is 96% on room air. NECK: There is no jugular venous distention. Carotid upstroke is normal. There is no bruit. CHEST: Reveals good air entry bilaterally. HEART: Reveals first and second heart sounds. No gallop, no murmur, no rub. ABDOMEN: Soft, nontender. EXTREMITIES: Did not reveal any edema. Peripheral pulses are felt. ASSESSMENT AND PLAN: 1. Atypical chest pain. 2. Severe uncontrolled hypertension. 3. Migraine headaches. PLAN: Please resume her home medications to better control the blood pressure. I think once the headaches have resolved, I expect the blood pressure to be better controlled. I will check an echocardiogram on her. She does not require any evaluation for the atypical chest pain at this time. I will review her outpatient records and if necessary follow up in my office, I will consider an outpatient stress test. Thank you for allowing us to participate in this pleasant lady. MMODL / IJN: [id number] /
[2022-08-15 15:29] VITALS: BP 167/92; PULSE 84; RESP 16; TEMP 98.1
[2022-08-15] MEDS ORDERED: RIZATRIPTAN 10 MG PO PRN (16:24)
--- NOTE | 2022-08-15 16:42 | CA ---
Transthoracic Echo Report Name: Apryl Aguilar Age: 62 Gender: F : 1960 Exam Date: 08/15/2022 12:31 Exam Location: [facility] Ht (in): 62 Wt (lb): 145 Ordering Physician: Richard Simms MD Attending/Referring Phys: Front Office Developer Blanca Garrett RDCS Procedure CPT: Indications: Chest Pain Cardiac Hx: Technical Quality: Fair Contrast 1: Total Dose (mL): Contrast 2: Total Dose (mL): MEASUREMENTS (Male / Female) Normal Values 2D ECHO LV Diastolic Diameter PLAX 3.6 cm 4.2 - 5.9 / 3.9 - 5.3 cm LV Systolic Diameter PLAX 2.4 cm IVS Diastolic Thickness 1.3 cm 0.6 - 1.0 / 0.6 - 0.9 cm LVPW Diastolic Thickness 1.1 cm 0.6 - 1.0 / 0.6 - 0.9 cm LV Relative Wall Thickness 0.7 LA Volume 62.0 cm??? 18 - 58 / 22 - 52 cm??? M-MODE Aortic Root Diameter MM 3.2 cm LA Systolic Diameter MM 3.7 cm LA Ao Ratio MM 1.2 AV Cusp Separation MM 1.5 cm DOPPLER AV Peak Velocity 99.6 cm/s AV Peak Gradient 4.0 mmHg LVOT Peak Velocity 98.6 cm/s LVOT Peak Gradient 3.9 mmHg MV Area PHT 3.9 cm??? Mitral E Point Velocity 68.6 cm/s Mitral A Point Velocity 76.2 cm/s Mitral E to A Ratio 0.9 MV Deceleration Time 196.2 ms TR Peak Velocity 224.3 cm/s TR Peak Gradient 20.1 mmHg Right Ventricular Systolic Press 23.3 mmHg FINDINGS Left Ventricle Moderately increased septal wall thickness. Mildly increased posterior wall thickness. Normal left ventricular systolic function with no obvious regional wall motion abnormalities. Normal left ventricular diastolic filling pattern. Left ventricular cavity size normal. Left ventricular ejection fraction is estimated at 55-60 %. Right Ventricle Normal right ventricular size and function. Right ventricular systolic pressure within normal limits. Right Atrium Normal right atrial size. Left Atrium Mildly increased left atrial volume. Mildly increased left atrial area. Mitral Valve Structurally normal mitral valve. Mild mitral regurgitation. Aortic Valve Trileaflet aortic valve. No aortic valve stenosis or regurgitation. Tricuspid Valve Structurally normal tricuspid valve. Mild tricuspid regurgitation. Pulmonic Valve Trace pulmonic regurgitation. Pericardium No pericardial effusion. Aorta Normal size aortic root and proximal ascending aorta. CONCLUSIONS Normal LV systolic function Mildly enlarged left atrium Previewed by: Dr. Timo Fairchild MD (Electronically Signed) Final Date: 15 August 2022 16:41
--- NOTE | 2022-08-15 17:25 | P.HPIM ---
History of Present Illness H&P Date: 08/15/22 Chief Complaint: Chest pain This is a pleasant 62-year-old patient follows with Dr. Leida Braswell. Chronic stable medical conditions include hypertension, hyperlipidemia, GERD, chronic low back pain, cardiac catheterization about 5 is ago that was unremarkable, primary ACTH deficiency for which patient is on hydrocortisone. Patient does follow with bench molder Dr. Serrano. Patient presented with mixture of symptoms including chest pain headache perspiration nausea short of breath wheezing slight cough. Also noted to have a blood pressure of 200/111. Patient had gone to see Dr. Earl Fairchild [facility] for elevated liver enzymes. Then she was sent here. Patient does complain of some mild wheezing and short of breath with activity. Review of systems: GEN.: Tired EYES: None HEENT: Some headache NECK: None RESPIRATORY: Some shortness of breath and wheezing CARDIOVASCULAR: Chest pain GASTROINTESTINAL: Nausea GENITOURINARY: None MUSCULOSKELETAL: Right low back pain LYMPHATICS: None HEMATOLOGICAL: None PSYCHIATRY: Anxious NEUROLOGICAL: None Past medical history to include: Hypertension, hyperlipidemia, primary ACTH deficiency, chronic lower back pain, anxiety depression, hypertension, hyperlipidemia, GERD Social history: Retired hairdresser, smokes half a pack a day for about 35 years. Drinks wine occasionally. . Physical examination: VITAL SIGNS: 98.6, 106, 18, 163 with 81, 96% room air GENERAL: BMI 26.5, reclining but slightly uncomfortable. EYES: Pupils equal. Conjunctiva normal. HEENT: External appearance of nose and ears normal, oral cavity grossly normal. NECK: JVD not raised; masses not palpable. HEART: First and second heart sounds are normal; no edema. LUNGS: Respiratory rate increased, decreased breaths sounds. ABDOMEN: Soft, nontender, liver spleen not palpable, no masses palpable. PSYCH: [Alert and oriented x3; mood and affect anxious l. MUSCULOSKELETAL:No Clubbing/cyanosis;muscles-grossly intact NEUROLOGICAL: Cranial nerves grossly intact; no facial asymmetry, power and sensation grossly intact. LYMPHATICS: No lymph nodes palpable in the axilla and neck INVESTIGATIONS, reviewed in the clinical context: White count 10.3 hemoglobin 14.1 platelets 316 potassium 4.3 creatinine 0.67 AST 221 ALT 142 total bilirubin 0.8 LDL 119 Troponin I 3 negative EKG tracing personally reviewed by sc-normal sinus rhythm. Chest x-ray film personally reviewed by me-hyperinflation Assessment and plan: -Accelerated hypertension Patient's home medications will be continued. Adjust blood pressure med ications. -Anterior chest wall pain. Combination of uncontrolled blood pressure and possible anxiety. Cardiology was consulted. They ordered a 2-D echo. -Primary ACTH deficiency Cortef 50 mg a morning 5 mg a evening. Follows with bench molder -GERD Prilosec -Chronic low back pain [place] -Emphysema. Minimal symptoms. -Chronic nicotine dependence, cigarette smoker Nicotine patch Past Medical History Past Medical History: Hyperlipidemia, Hypertension Additional Past Medical History / Comment(s): adrenal deficiency History of Any Multi-Drug Resistant Organisms: None Reported Past Surgical History: Heart Catheterization, Hysterectomy Additional Past Surgical History / Comment(s): ulner nerve disposition, cervical fusion, neck -cervical ablation, bulding discs Past Psychological History: No Psychological Hx Reported, Anxiety, Depression Smoking Status: Current every day smoker Past Alcohol Use History: Occasional Past Drug Use History: None Reported, Marijuana Medications and Allergies Home Medications Medication Instructions Recorded Confirmed Type Hydrocortisone [Cortef] 15 mg PO DAILY 02/08/16 08/14/22 History Rizatriptan Benzoate [Maxalt] 10 mg PO BID PRN 02/08/16 08/14/22 History Verapamil HCl [Verapamil ER] 240 mg PO HS 02/08/16 08/14/22 History estradioL [Estrace] 1 mg PO DAILY 02/08/16 08/14/22 History Hydrocortisone [Cortef] 5 mg PO DAILY@1500 08/14/22 08/14/22 History LORazepam [Ativan] 0.5 mg PO DAILY PRN 08/14/22 08/14/22 History Omeprazole [PriLOSEC] 40 mg PO DAILY 08/14/22 08/14/22 History Ondansetron Odt [Zofran Odt] 8 mg PO Q6H PRN 08/14/22 08/14/22 History Pregabalin [Lyrica] 75 mg PO TID 08/14/22 08/14/22 History QUEtiapine [SEROquel] 25 mg PO HS 08/14/22 08/14/22 History atenoloL [Tenormin] 100 mg PO DAILY 08/14/22 08/14/22 History hydrALAZINE HCL [Apresoline] 10 mg PO TID 08/14/22 08/14/22 History tiZANidine [Zanaflex] 4 mg PO Q8HR PRN 08/14/22 08/14/22 History Allergies Allergy/AdvReac Type Severity Reaction Status Date / Time azithromycin [From Zithromax] Allergy Unknown Verified 08/14/22 21:37 clindamycin Allergy Unknown Verified 08/14/22 21:37 codeine Allergy Rash/Hives Verified 08/14/22 21:37 zonisamide [From Zonegran] Allergy Rash/Hives Verified 08/14/22 21:37 Physical Exam Vitals: Vital Signs Temp Pulse Pulse Resp BP BP Pulse Ox 08/15/22 07:00 98.6 F 106 H 18 163/81 96 08/15/22 03:17 96 18 172/89 98 08/15/22 02:52 107 H 08/15/22 01:54 107 H 18 209/107 99 08/15/22 01:10 98 18 171/79 97 08/15/22 01:08 179/80 08/15/22 01:07 179/80 08/15/22 01:04 96 16 179/80 99 08/15/22 01:00 93 16 195/104 95 08/15/22 00:55 194/92 08/15/22 00:25 78 16 176/88 95 08/15/22 00:09 78 16 173/80 98 08/14/22 22:31 83 16 196/93 95 08/14/22 19:38 81 16 181/100 96 08/14/22 19:15 84 16 198/104 94 L 08/14/22 18:10 98 F 84 16 204/101 96 Intake and Output 08/14/22 08/15/22 08/15/22 22:59 06:59 14:59 Intake Total 540 Balance 540 Intake: Oral 540 Other: Voiding Method Toilet Weight 65.771 kg 65.771 kg Results CBC & Chem 7: 08/14/22 18:44 08/14/22 19:10 Labs: Abnormal Lab Results - Last 24 Hours (Table) 08/14/22 08/14/22 08/14/22 Range/Units 18:44 19:10 19:10 RDW 16.2 H (11.5-15.5) % APTT 21.5 L (22.0-30.0) sec AST 221 H (14-36) U/L ALT 142 H (4-34) U/L Alkaline Phosphatase 169 H (38-126) U/L Triglycerides (0.00-149.00) mg/dL Cholesterol (0.00-200.00) mg/dL VLDL Cholesterol, Calc (5.00-40.00) mg/dL HDL Cholesterol (40.00-60.00) mg/dL Urine Appearance (Clear) Urine Protein (Negative) Urine Blood (Negative) Urine RBC (0-5) /hpf Ur Squamous Epith Cells (0-4) /hpf Urine Bacteria (None) /hpf Urine Mucus (None) /hpf 08/14/22 08/14/22 Range/Units 19:10 20:00 RDW (11.5-15.5) % APTT (22.0-30.0) sec AST (14-36) U/L ALT (4-34) U/L Alkaline Phosphatase (38-126) U/L Triglycerides 320.00 H (0.00-149.00) mg/dL Cholesterol 246.00 H (0.00-200.00) mg/dL VLDL Cholesterol, Calc 64.00 H (5.00-40.00) mg/dL HDL Cholesterol 62.40 H (40.00-60.00) mg/dL Urine Appearance Cloudy H (Clear) Urine Protein 1+ H (Negative) Urine Blood Small H (Negative) Urine RBC 7 H (0-5) /hpf Ur Squamous Epith Cells 8 H (0-4) /hpf Urine Bacteria Many H (None) /hpf Urine Mucus Few H (None) /hpf
[2022-08-15] MEDS ORDERED: hydrALAZINE HCL 25 MG TAB PO STA (17:28)
--- NOTE | 2022-08-15 22:52 | P.DS ---
Providers Date of admission: 08/14/22 22:39 Expected date of discharge: 08/15/22 Attending physician: Julien Alonzo Consults: 08/14/22 22:39 Consult Physician Urgent Consulting Provider: Timo Fairchild Consult Reason/Comments: Chest pain, hypertension Do you want consulting provider notified?: Yes, Notify in am Primary care physician: Leida Braswell [place] [facility] Course: Chief Complaint: Chest pain This is a pleasant 62-year-old patient follows with Dr. Leida Braswell. Chronic stable medical conditions include hypertension, hyperlipidemia, GERD, chronic low back pain, cardiac catheterization about 5 is ago that was unremarkable, primary ACTH deficiency for which patient is on hydrocortisone. Patient does follow with water well driller Dr. Serrano. Patient presented with mixture of symptoms including chest pain headache perspiration nausea short of breath wheezing slight cough. Also noted to have a blood pressure of 200/111. Patient had gone to see Dr. Earl Fairchild [facility] for elevated liver enzymes. Then she was sent here. Patient does complain of some mild wheezing and short of breath with activity. Patient was seen by currently. 2-D echocardiogram was done. EF of 55-60%. No wall motion abnormality. Patient follows with cartilage outpatient for a possible stress test. Patient advised against smoking. Patient's hydralazine was increased to 25 mg 3 times a day Past medical history to include: Hypertension, hyperlipidemia, primary ACTH deficiency, chronic lower back pain, anxiety depression, hypertension, hyperlipidemia, GERD Social history: Retired hairdresser, smokes half a pack a day for about 35 years. Drinks wine occasionally. . Physical examination: VITAL SIGNS: 98.6, 106, 18, 163 with 81, 96% room air GENERAL: BMI 26.5, reclining but slightly uncomfortable. EYES: Pupils equal. Conjunctiva normal. HEENT: External appearance of nose and ears normal, oral cavity grossly normal. NECK: JVD not raised; masses not palpable. HEART: First and second heart sounds are normal; no edema. LUNGS: Respiratory rate increased, decreased breaths sounds. ABDOMEN: Soft, nontender, liver spleen not palpable, no masses palpable. PSYCH: [Alert and oriented x3; mood and affect anxious l. MUSCULOSKELETAL:No Clubbing/cyanosis;muscles-grossly intact INVESTIGATIONS, reviewed in the clinical context: 2-D echocardiogram: EF 51-60% White count 10.3 hemoglobin 14.1 platelets 316 potassium 4.3 creatinine 0.67 AST 221 ALT 142 total bilirubin 0.8 LDL 119 Troponin I 3 negative EKG tracing personally reviewed by me-normal sinus rhythm. Chest x-ray film personally reviewed by me-hyperinflation Assessment and plan: -Accelerated hypertension Patient's home medications will be continued. Hydralazine increased to 25 3 times a day -Anterior chest wall pain. Combination of uncontrolled blood pressure and possible anxiety. Cardiology was consulted. Will follow up outpatient -Primary ACTH deficiency Cortef 15 mg a morning 5 mg a evening. Follows with water well driller -GERD Shelbylosec -Chronic low back pain [place] -Emphysema. Minimal symptoms. -Chronic nicotine dependence, cigarette smoker Nicotine patch Disposition: Home Patient Condition at Discharge: Stable Plan - Discharge Summary New Discharge Prescriptions: New hydrALAZINE HCL [Apresoline] 25 mg PO TID #90 tab Nicotine 21Mg/24Hr Patch [Habitrol] 1 patch TRANSDERM DAILY #14 patch Aspirin 81 mg PO DAILY #1 tab Continue Verapamil HCl [Verapamil ER] 240 mg PO HS Rizatriptan Benzoate [Maxalt] 10 mg PO BID PRN PRN Reason: Migraine Headache Hydrocortisone [Cortef] 15 mg PO DAILY estradioL [Estrace] 1 mg PO DAILY QUEtiapine [SEROquel] 25 mg PO HS Ondansetron Odt [Zofran ODT] 8 mg PO Q6H PRN PRN Reason: Nausea And Vomiting Omeprazole [PriLOSEC] 40 mg PO DAILY LORazepam [Ativan] 0.5 mg PO DAILY PRN PRN Reason: Anxiety tiZANidine [Zanaflex] 4 mg PO Q8HR PRN PRN Reason: Pain Pregabalin [Lyrica] 75 mg PO TID Hydrocortisone [Cortef] 5 mg PO DAILY@1500 atenoloL [Tenormin] 100 mg PO DAILY Discontinued hydrALAZINE HCL [Apresoline] 10 mg PO TID Discharge Medication List Hydrocortisone [Cortef] 15 mg PO DAILY 02/08/16 [History] Rizatriptan Benzoate [Maxalt] 10 mg PO BID PRN 02/08/16 [History] Verapamil HCl [Verapamil ER] 240 mg PO HS 02/08/16 [History] estradioL [Estrace] 1 mg PO DAILY 07/22/16 [History] Hydrocortisone [Cortef] 5 mg PO DAILY@1500 08/14/22 [History] LORazepam [Ativan] 0.5 mg PO DAILY PRN 08/14/22 [History] Omeprazole [PriLOSEC] 40 mg PO DAILY 08/14/22 [History] Ondansetron Odt [Zofran ODT] 8 mg PO Q6H PRN 08/14/22 [History] Pregabalin [Lyrica] 75 mg PO TID 08/14/22 [History] QUEtiapine [SEROquel] 25 mg PO HS 08/14/22 [History] atenoloL [Tenormin] 100 mg PO DAILY 08/14/22 [History] tiZANidine [Zanaflex] 4 mg PO Q8HR PRN 08/14/22 [History] Aspirin 81 mg PO DAILY #1 tab 08/15/22 [Rx] Nicotine 21Mg/24Hr Patch [Habitrol] 1 patch TRANSDERM DAILY #14 patch 08/15/22 [Rx] hydrALAZINE HCL [Apresoline] 25 mg PO TID #90 tab 08/15/22 [Rx] Follow up Appointment(s)/Referral(s): Leida Braswell MD [Primary Care Provider] - 1-2 days Timo Fairchild MD [STAFF PHYSICIAN] - 1 Week Patient Instructions/Handouts: Chest Pain (DC), Migraine Headache (ED) Discharge Disposition: HOME SELF-CARE
== END 2022-08-15 18:13 | disposition home or self-care (01) ==
LOC: EC 17:48 → 6NMEDSUR 22:39
PROVIDERS: ADMIT Hospitalist; ATTEND Hospitalist
DX: R07.89 Other chest pain (principal); I10 Essential (primary) hypertension; G43.909 Migraine, unspecified, not intractable, without status migrainosus; E27.1 Primary adrenocortical insufficiency; E78.5 Hyperlipidemia, unspecified; J43.9 Emphysema, unspecified; K21.9 Gastro-esophageal reflux disease without esophagitis; M54.50 Low back pain, unspecified; G89.29 Other chronic pain; F17.210 Nicotine dependence, cigarettes, uncomplicated; R74.8 Abnormal levels of other serum enzymes; F32.A Depression, unspecified; F41.9 Anxiety disorder, unspecified; Z71.6 Tobacco abuse counseling; Z79.52 Long term (current) use of systemic steroids; Z79.890 Hormone replacement therapy; Z79.899 Other long term (current) drug therapy; Z88.1 Allergy status to other antibiotic agents; Z88.5 Allergy status to narcotic agent; Z88.8 Allergy status to other drugs, medicaments and biological substances; Z98.1 Arthrodesis status; Z90.710 Acquired absence of both cervix and uterus; Z98.890 Other specified postprocedural states
CPT/HCPCS: 96376; 96375 ×2; 96374; 99285; 36415; 93005; 93306; 85379; 83880; 80061; 80053; 83690; 83735; 84484 ×2; 85025; 85610; 85730; 81001; 71046; G0378 ×2; S4990; J0360; J1200 ×2; J2765 ×2; J1885 ×2

== ENCOUNTER 2022-10-08 11:38 | Emergency (ER) | payer MEDICARE ==
[2022-10-08 11:57] VITALS: TEMP 98
--- NOTE | 2022-10-08 12:17 | XR ---
EXAMINATION TYPE: XR chest 2V DATE OF EXAM: 10/08/2022 COMPARISON: 08/14/2022 TECHNIQUE: PA and lateral views submitted. HISTORY: Cough FINDINGS: The lungs are clear and there is no pneumothorax, pleural effusion, or focal pneumonia. Heart size normal and no overt failure. Postoperative change overlying the cervical spine. Hypertrophic and dege nerative changes. Hyperinflation. Atherosclerotic change aorta. No overt failure. IMPRESSION: 1. No acute process. Correlate for COPD.
[2022-10-08] MEDS ORDERED: ONDANSETRON 4 MG/2 ML VIAL IVP STA (13:07)
[2022-10-08 13:26] LABS: Anisocytosis Slight; Basophils # (A) 0.1 k/uL (0-0.2); Basophils % (A) 1 %; Eosinophils # (A) 0.2 k/uL (0-0.7); Eosinophils % (A) 2 %; HCT 40.1 % (34.0-46.0); HGB 13.2 gm/dL (11.4-16.0); Lymphocytes # (A) 2.4 k/uL (1.0-4.8); Lymphocytes % (A) 18 %; Mean Platelet Volume 7.5; Monocytes # (A) 0.7 k/uL (0-1.0); Monocytes % (A) 6 %; Neutrophils # (A) 9.8 k/uL (1.3-7.7); Neutrophils % (A) 73 %; Platelet Count 310 k/uL (150-450); RBC 4.13 m/uL (3.80-5.40); RDW 16.7 % (11.5-15.5); WBC 13.4 k/uL (3.8-10.6)
[2022-10-08] MEDS ORDERED: KETOROLAC 15 MG/ML 1 ML VIAL IVP STA (13:34)
[2022-10-08] MEDS ORDERED: IPRATROPIUM-ALBUTEROL 3 ML NEB INHALATION STA (13:34)
[2022-10-08] MEDS ORDERED: METOCLOPRAMIDE 5 MG/ML 2 ML VIAL IVP STA (13:34)
[2022-10-08] MEDS ORDERED: diphenhydrAMINE 50 MG/ML 1 ML VIAL IVP STA (13:34)
[2022-10-08 13:44] LABS: ALT 65 U/L (4-34); AST 162 U/L (14-36); African American GFR (CKD) >90 (>60 ml/min/1.73 sqM); Albumin 4.5 g/dL (3.5-5.0); Alkaline Phosphatase 239 U/L (38-126); Anion Gap 11 mmol/L; Blood Urea Nitrogen 12 mg/dL (7-17); Calcium 9.3 mg/dL (8.4-10.2); Carbon Dioxide 25 mmol/L (22-30); Chloride 102 mmol/L (98-107); Glucose 126 mg/dL (74-99); Non-African American GFR(CKD) >90 (>60 ml/min/1.73 sqM); Potassium 4.4 mmol/L (3.5-5.1); Sodium 138 mmol/L (137-145); Total Bilirubin 0.9 mg/dL (0.2-1.3); Total Protein 7.5 g/dL (6.3-8.2)
--- NOTE | 2022-10-08 13:45 | ED ---
SOB HPI - General Chief Complaint: Shortness of Breath Stated Complaint: hypertension, cough Time Seen by Provider: 10/08/22 12:38 Source: patient Mode of arrival: ambulatory Limitations: no limitations - History of Present Illness Initial Comments: 62-year-old female past history of adrenal insufficiency presents to the emergency department reporting hypertension and shortness of breath. Reports that she has had symptoms of an upper respiratory infection for the past week. She was scheduled to have a stress test today. They found her blood pressure to be high. They let her complete the stress test however afterwards told her that she should go to the ER for further treatment. She has a history of hypertension due to her adrenal insufficiency. Reports that her blood pressure is never under control. Recently started on hydralazine 3 times daily. She has been having a productive cough with associated shortness of breath. No chest pain medicine nausea without vomiting. Has had intermittent fevers. No sick contacts with similar symptoms. No other alleviating, marketing support specialist modifying factors - Related Data Home Medications Medication Instructions Recorded Confirmed Hydrocortisone [Cortef] 15 mg PO DAILY 02/08/16 10/08/22 Rizatriptan Benzoate [Maxalt] 10 mg PO BID PRN 02/08/16 10/08/22 Verapamil HCl [Verapamil ER] 240 mg PO HS 02/08/16 10/08/22 estradioL [Estrace] 1 mg PO DAILY 02/08/16 10/08/22 Hydrocortisone [Cortef] 5 mg PO DAILY@1500 08/14/22 10/08/22 LORazepam [Ativan] 0.5 mg PO DAILY PRN 08/14/22 10/08/22 Omeprazole [PriLOSEC] 40 mg PO DAILY 08/14/22 10/08/22 Ondansetron Odt [Zofran ODT] 8 mg PO Q6H PRN 08/14/22 10/08/22 Pregabalin [Lyrica] 75 mg PO TID 08/14/22 10/08/22 QUEtiapine [SEROquel] 50 mg PO HS 08/14/22 10/08/22 atenoloL [Tenormin] 100 mg PO DAILY 08/14/22 10/08/22 tiZANidine [Zanaflex] 4 mg PO Q8HR PRN 08/14/22 10/08/22 hydrALAZINE HCL [Apresoline] 50 mg PO TID 10/08/22 10/08/22 Previous Rx's Medication Instructions Recorded Albuterol Nebulized [Ventolin 2.5 mg INHALATION Q4H PRN #75 ml 10/08/22 Nebulized] Benzonatate [Tessalon Perles] 100 mg PO TID PRN #15 capsule 10/08/22 Doxycycline Hyclate 100 mg PO BID 1 Days #10 tab 10/08/22 predniSONE [Deltasone] 20 mg PO BID #10 tab 10/08/22 Albuterol Inhaler [Ventolin Hfa 2 puff INHALATION Q4HR PRN #1 each 10/09/22 Inhaler] Allergies Allergy/AdvReac Type Severity Reaction Status Date / Time azithromycin [From Zithromax] Allergy Unknown Verified 10/08/22 13:31 clindamycin Allergy Unknown Verified 10/08/22 13:31 codeine Allergy Rash/Hives Verified 10/08/22 13:31 zonisamide [From Zonegran] Allergy Rash/Hives Verified 10/08/22 13:31 Review of Systems ROS Statement: Those systems with pertinent positive or pertinent negative responses have been documented in the HPI. ROS Other: All systems not noted in ROS Statement are negative. Past Medical History Past Medical History: Hyperlipidemia, Hypertension Additional Past Medical History / Comment(s): adrenal deficiency History of Any Multi-Drug Resistant Organisms: None Reported Past Surgical History: Heart Catheterization, Hysterectomy Additional Past Surgical History / Comment(s): ulner nerve disposition, cervical fusion, neck -cervical ablation, bulding discs Past Psychological History: Anxiety, Depression Smoking Status: Current every day smoker Past Alcohol Use History: Occasional Past Drug Use History: Marijuana General Exam Limitations: no limitations General appearance: alert, in no apparent distress Head exam: Present: atraumatic, normocephalic, normal inspection Eye exam: Present: normal appearance, PERRL, EOMI. Absent: scleral icterus, conjunctival injection, periorbital swelling ENT exam: Present: normal exam, mucous membranes moist, other (nasal congestion) Neck exam: Present: normal inspection. Absent: tenderness, meningismus, lymphadenopathy Respiratory exam: Present: normal lung sounds bilaterally. Absent: respiratory distress, wheezes, rales, rhonchi, stridor Cardiovascular Exam: Present: regular rate, normal rhythm, normal heart sounds. Absent: systolic murmur, diastolic murmur, rubs, gallop, clicks GI/Abdominal exam: Present: soft, normal bowel sounds. Absent: distended, tenderness, guarding, rebound, rigid Extremities exam: Present: normal inspection, full ROM, normal capillary refill. Absent: tenderness, pedal edema, joint swelling, calf tenderness Back exam: Present: normal inspection Neurological exam: Present: alert, oriented X3, CN II-XII intact Psychiatric exam: Present: normal affect, normal mood Skin exam: Present: warm, dry, intact, normal color. Absent: rash Course Vital Signs 10/08/22 10/08/22 10/08/22 11:51 12:35 13:29 Temperature 98.0 F Pulse Rate 79 78 82 Respiratory 24 14 18 Rate Blood Pressure 195/92 183/104 178/99 O2 Sat by Pulse 95 97 95 Oximetry 10/08/22 10/08/22 10/08/22 14:05 14:16 15:49 Temperature Pulse Rate 75 88 69 Respiratory 22 18 Rate Blood Pressure 190/99 173/95 O2 Sat by Pulse 95 Oximetry Medical Decision Making - Medical Decision Making Was pt. sent in by a medical professional or institution (, PA, RN [employer], urgent care, hospital, or senior care...) When possible be specific @ -cardiology office Did you speak to anyone other than the patient for history (EMS, parent, family, police, friend...)? What history was obtained from this source @ -No Did you review nursing and triage notes (agree or disagree)? Why? @ [I reviewed and agree with nursing and triage notes Were old charts reviewed (outside hosp., previous admission, EMS record, old EKG, old radiological studies, urgent care reports/EKG's, senior care records)? Report findings @ -No old charts were reviewed Differential Diagnosis (chest pain, altered mental status, abdominal pain women, abdominal pain men, vaginal bleeding, weakness, fever, dyspnea, syncope, headache, dizziness, GI bleed, back pain, seizure, CVA, palpatations, mental health, musculoskeletal)? @ -htn emergency, acs, adrenal crisis, uri EKG interpreted by me (3pts min.). @ -yes X-rays interpreted by me (1pt min.). @ -yes CT interpreted by me (1pt min.). @ -None done U/S interpreted by me (1pt. min.). @ -None done What testing was considered but not performed or refused? (CT, X-rays, U/S, labs)? Why? @ -None What meds were considered but not given or refused? Why? @ -None Did you discuss the management of the patient with other professionals (professionals i.e. , PA, RN [employer], lab, RT, psych nurse, social media marketer, deputy felony clerk, teacher, county records management officer, protective services case worker)? Give summary @ -No Was smoking cessation discussed for >3mins.? @ -No Was critical care preformed (if so, how long)? @ - No Were there social determinants of health that impacted care today? How? (Homelessness, low income, unemployed, alcoholism, drug addiction, transportation, low edu. Level, literacy, decrease access to med. care, correction, rehab)? @ -No Was there de-escalation of care discussed even if they declined (Discuss DNR or withdrawal of care, Hospice)? DNR status @ -No What co-morbidities impacted this encounter? (DM, HTN, Smoking, COPD, CAD, Cancer, CVA, ARF, Chemo, Hep., AIDS, mental health diagnosis, sleep apnea, morbid obesity)? @ -adrenal insufficiency, htn Was patient admitted / discharged? Hospital course, mention meds given and route, prescriptions, significant lab abnormalities, going to OR and other pertinent info. @ -Upon arrival patient was placed into room 13. A thorough history and ph ysical exam was performed. Laboratory studies were conducted and a chest x-ray was completed. Laboratory studies demonstrate a lactic acid 2.8. Liver enzymes mildly elevated. Chest x-ray demonstrates no acute process. Called and spoke with Dr. Serrano. States that the patient can be given a higher dose of steroids for suspected bronchitis. She will stop her hydrocortisone. She will also be placed on albuterol, Tessalon Perles and doxycycline. Take the medications as directed. She does have a headache while in the emergency department and therefore is given a migraine cocktail. Reevaluation reports marked improvement in her symptoms. She is agreeable to discharge home. Needs to follow-up with her primary care doctor and with Dr. Serrano. Return to the emergency room for any new or worsening symptoms. Patient was discharged home in stable condition Undiagnosed new problem with uncertain prognosis? @ -yes Drug Therapy requiring intensive monitoring for toxicity (Heparin, Nitro, Insulin, Cardizem)? @ -no Were any procedures done? @ -No Diagnosis/symptom? @ -acute uri, c hronic htn Uncomplicated (without systemic symptoms) or Complicated (systemic symptoms)? @ -complicated Side effects of treatment? @ -No Exacerbation, Progression, or Severe Exacerbation? @ -No Poses a threat to life or bodily function? How? (Chest pain, [place], [place], pneumonia, PE, COPD, DKA, ARF, appy, cholecystitis, CVA, Diverticulitis, Homicidal, Suicidal, threat to staff... and all critical care pts) @ -No - Lab Data Result diagrams: 10/08/22 13:12 10/08/22 13:12 Lab Results 10/08/22 10/08/22 10/08/22 Range/Units 12:00 13:12 13:12 WBC 13.4 H (3.8-10.6) k/uL RBC 4.13 (3.80-5.40) m/uL Hgb 13.2 (11.4-16.0) gm/dL Hct 40.1 (34.0-46.0) % MCV 97.0 (80.0-100.0) fL MCH 32.0 (25.0-35.0) pg MCHC 33.0 (31.0-37.0) g/dL RDW 16.7 H (11.5-15.5) % Plt Count 310 (150-450) k/uL MPV 7.5 Neutrophils % 73 % Lymphocytes % 18 % Monocytes % 6 % Eosinophils % 2 % Basophils % 1 % Neutrophils # 9.8 H (1.3-7.7) k/uL Lymphocytes # 2.4 (1.0-4.8) k/uL Monocytes # 0.7 (0-1.0) k/uL Eosinophils # 0.2 (0-0.7) k/uL Basophils # 0.1 (0-0.2) k/uL Anisocytosis Slight Sodium 138 (137-145) mmol/L Potassium 4.4 (3.5-5.1) mmol/L Chloride 102 (98-107) mmol/L Carbon Dioxide 25 (22-30) mmol/L Anion Gap 11 mmol/L BUN 12 (7-17) mg/dL Creatinine 0.62 (0.52-1.04) mg/dL Est GFR (CKD-EPI)AfAm >90 (>60 ml/min/1.73 sqM) Est GFR (CKD-EPI)NonAf >90 (>60 ml/min/1.73 sqM) Glucose 126 H (74-99) mg/dL Lactic Ac Sepsis Rflx Plasma Lactic Acid Tyler (0.7-2.0) mmol/L Calcium 9.3 (8.4-10.2) mg/dL Total Bilirubin 0.9 (0.2-1.3) mg/dL AST 162 H (14-36) U/L ALT 65 H (4-34) U/L Alkaline Phosphatase 239 H (38-126) U/L Total Protein 7.5 (6.3-8.2) g/dL Albumin 4.5 (3.5-5.0) g/dL TSH 0.708 (0.465-4.680) mIU/L Influenza Type A (PCR) Not Detected (Not Detectd) Influenza Type B (PCR) Not Detected (Not Detectd) RSV (PCR) Not Detected (Not Detectd) SARS-CoV-2 (PCR) Not Detected (Not Detectd) 10/08/22 10/08/22 Range/Units 13:12 13:44 WBC (3.8-10.6) k/uL RBC (3.80-5.40) m/uL Hgb (11.4-16.0) gm/dL Hct (34.0-46.0) % MCV (80.0-100.0) fL MCH (25.0-35.0) pg MCHC (31.0-37.0) g/dL RDW (11.5-15.5) % Plt Count (150-450) k/uL MPV Neutrophils % % Lymphocytes % % Monocytes % % Eosinophils % % Basophils % % Neutrophils # (1.3-7.7) k/uL Lymphocytes # (1.0-4.8) k/uL Monocytes # (0-1.0) k/uL Eosinophils # (0-0.7) k/uL Basophils # (0-0.2) k/uL Anisocytosis Sodium (137-145) mmol/L Potassium (3.5-5.1) mmol/L Chloride (98-107) mmol/L Carbon Dioxide (22-30) mmol/L Anion Gap mmol/L BUN (7-17) mg/dL Creatinine (0.52-1.04) mg/dL Est GFR (CKD-EPI)AfAm (>60 ml/min/1.73 sqM) Est GFR (CKD-EPI)NonAf (>60 ml/min/1.73 sqM) Glucose (74-99) mg/dL Lactic Ac Sepsis Rflx Y Plasma Lactic Acid [place] 2.7 H* (0.7-2.0) mmol/L Calcium (8.4-10.2) mg/dL Total Bilirubin (0.2-1.3) mg/dL AST (14-36) U/L ALT (4-34) U/L Alkaline Phosphatase (38-126) U/L Total Protein (6.3-8.2) g/dL Albumin (3.5-5.0) g/dL TSH (0.465-4.680) mIU/L Influenza Type A (PCR) (Not Detectd) Influenza Type B (PCR) (Not Detectd) RSV (PCR) (Not Detectd) SARS-CoV-2 (PCR) (Not Detectd) - EKG Data EKG Comments: EKG demonstrates sinus rhythm with rate of 78. RI interval 157. QRS 84. QTC of 394. No acute ST segment elevations or depressions Disposition Clinical Impression: Hypertension, Cough, Bronchitis, Adrenal insufficiency Disposition: HOME SELF-CARE Condition: Stable Instructions (If sedation given, give patient instructions): Acute Bronchitis (ED) Additional Instructions: Stop taking the hydrocortisone while you are on the prednisone. Start the prednisone tomorrow. Take Mucinex as directed at home. Use the Tessalon Perles for cough. Use your inhaler every 4 hours. Follow-up with Dr. Serrano. Return for any new or worsening symptoms Prescriptions: predniSONE [Deltasone] 20 mg PO BID #10 tab Doxycycline Hyclate 100 mg PO BID 1 Days #10 tab Benzonatate [Tessalon Perles] 100 mg PO TID PRN #15 capsule PRN Reason: Cough Albuterol Inhaler [Ventolin Hfa Inhaler] 2 puff INHALATION Q4HR PRN #1 each PRN Reason: Dyspnea Albuterol Nebulized [Ventolin Nebulized] 2.5 mg INHALATION Q4H PRN #75 ml PRN Reason: difficulty in breathing Is patient prescribed a controlled substance at d/c from ED?: No Referrals: Leida Braswell MD [Primary Care Provider] - 1-2 days Clifton Serrano MD [REFERRING] - 1-2 days Time of Disposition: 15:33
[2022-10-08] MEDS ORDERED: methylPREDNISolone SOD SUCCI 125 MG/2 ML VIAL IV STA (13:53)
[2022-10-08 15:53] VITALS: BP 173/95; PULSE 69; RESP 18
== END 2022-10-08 15:52 | disposition home or self-care (01) ==
LOC: EC 11:38
DX: I10 Essential (primary) hypertension (principal); J40 Bronchitis, not specified as acute or chronic; E27.40 Unspecified adrenocortical insufficiency; E78.5 Hyperlipidemia, unspecified; F32.A Depression, unspecified; F41.9 Anxiety disorder, unspecified; F17.200 Nicotine dependence, unspecified, uncomplicated; F12.90 Cannabis use, unspecified, uncomplicated; Z88.1 Allergy status to other antibiotic agents; Z88.5 Allergy status to narcotic agent; Z88.2 Allergy status to sulfonamides; Z79.899 Other long term (current) drug therapy; Z20.822 Contact with and (suspected) exposure to COVID-19
CPT/HCPCS: 36415; 94640; 93005; 80053; 84443; 83605; 85025; 87636; 71046; 99285; 96374; 96375 ×5; J1200; J2765; J2930; J2405; J1885